=== PATIENT | male | born 1940 | race African-American/Black ===

== ENCOUNTER 2018-06-14 09:02 | Outpatient (CLI) | payer MEDICARE ==
[2018-06-14 11:38] LABS: Free T4 (Free Thyroxine) 1.28 ng/dL (0.76-1.46)
== END 2018-06-14 09:03 | disposition home or self-care (01) ==
LOC: LAB 09:02
PROVIDERS: ATTEND Internal Medicine
DX: E78.5 Hyperlipidemia, unspecified (principal); C67.9 Malignant neoplasm of bladder, unspecified; R73.09 Other abnormal glucose; R19.7 Diarrhea, unspecified; R79.89 Other specified abnormal findings of blood chemistry; E78.00 Pure hypercholesterolemia, unspecified; I10 Essential (primary) hypertension; Z93.50 Unspecified cystostomy status
CPT/HCPCS: 36415; 82607; 83036; 84439; 84443

== ENCOUNTER 2018-11-16 09:44 | Outpatient (CLI) | payer MEDICARE ==
[2018-11-16 10:29] LABS: Alanine Aminotransferase 15 units/L (7-56); Albumin 4.6 g/dL (3.9-5); Chol/HDL Ratio 4.76 %; HDL Cholesterol 38 mg/dL (40-59); LDL Cholesterol,Direct 117 mg/dL (50-130)
[2018-11-16 10:34] LABS: Bilirubin,Direct < 0.2 mg/dL (0-0.2)
== END 2018-11-16 09:45 | disposition home or self-care (01) ==
LOC: LAB 09:44
PROVIDERS: ATTEND Internal Medicine
DX: E78.5 Hyperlipidemia, unspecified (principal); E78.00 Pure hypercholesterolemia, unspecified; I10 Essential (primary) hypertension; K21.9 Gastro-esophageal reflux disease without esophagitis
CPT/HCPCS: 36415; 80061; 80076; 82607

== ENCOUNTER 2019-04-28 12:03 | Outpatient (CLI) | payer MEDICARE ==
--- NOTE | 2019-04-28 14:23 | Cat Scan Report ---
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 TECHNIQUE: Axial CT images were obtained through the abdomen and pelvis without IV contrast. Sagittal and coronal reformatted images. All CT scans at this location are performed using CT dose reduction for ALARA by means of automated exposure control. FINDINGS: CT ABDOMEN: Lung Bases: Clear. Liver: No significant abnormality. Biliary: No significant abnormality. Spleen: No significant abnormality. Unenlarged. Pancreas: No significant abnormality. Adrenals: No significant abnormality. Kidneys: The right kidney and proximal collecting system are unremarkable. Tiny subcentimeter cortica l cyst is noted near the inferior pole. No normal left renal parenchyma is appreciated. There appears to be severe diffuse cortical thinning throughout the left kidney. There are multiple cysts with wal l calcifications in the left kidney with the largest measuring 5.4 cm at the superior pole. A [address] one is identified in the left renal pelvis but no hydronephrosis. Lymphatics: No lymphadenopathy. Vasculature: Moderate aortic calcifications are identified. No aneurysm. Bowel/Peritoneum: No evidence for bowel obstruction or focal inflammation. A moderate to large duoden al diverticulum is identified measuring up to 4.6 x 2.3 cm in axial plane. Ileal conduit is noted in the right lower quadrant. There is a moderate sized parastomal hernia containing fat. The hernia wendy ures up to [address] PELVIS: : Cystectomy changes are evident. No pelvic cyst, mass or adenopathy. Osseous Structures: Mild osteopenia. Mild lumbar spondylosis. No fracture or suspicious bony lesion i s identified. Additional Findings: None IMPRESSION: Cystectomy changes with ileal conduit formation. A moderate to large parastomal hernia containing fat is noted in the right lower quadrant. Severe atrophy of the left kidney with multiple cysts as described. No acute process or evidence for metastatic disease. Signer Name: Yon Pierce Jr, MD Signed: 04/28/2019 2:19 PM Workstation Name: [id number]
== END 2019-04-28 12:04 | disposition home or self-care (01) ==
LOC: CT 12:03
PROVIDERS: ATTEND Urology
DX: N28.1 Cyst of kidney, acquired (principal); C67.4 Malignant neoplasm of posterior wall of bladder; N20.0 Calculus of kidney; K43.5 Parastomal hernia without obstruction or gangrene; N26.1 Atrophy of kidney (terminal)
CPT/HCPCS: 74176

== ENCOUNTER 2020-05-07 11:15 | Outpatient (CLI) | payer MEDICARE ==
--- NOTE | 2020-05-07 12:16 | XRay Report ---
CHEST 2 VIEWS INDICATION: HISTORY OF BLADDER CANCER. COMPARISON: None. FINDINGS: Support devices: None. Heart: Within normal limits. Lungs/Pleura: No acute air space or interstitial disease. No significant pleural effusion. IMPRESSION: No acute findings. Signer Name: Yovani Tello MD Signed: 05/07/2020 12:12 PM Workstation Name: [id number]
== END 2020-05-07 11:16 | disposition home or self-care (01) ==
LOC: XRAY 11:15
PROVIDERS: ATTEND Internal Medicine Hematology & Oncology
DX: R05 Cough (principal); Z85.51 Personal history of malignant neoplasm of bladder
CPT/HCPCS: 71046

== ENCOUNTER 2021-06-06 11:09 | Outpatient (CLI) | payer MEDICARE | END 2021-06-06 11:10 | disposition home or self-care (01) | LOC: LABHHL 11:09 | PROVIDERS: ATTEND Internal Medicine Hematology & Oncology | DX: C67.9 Malignant neoplasm of bladder, unspecified (principal) ==

== ENCOUNTER 2021-07-01 07:13 | Day surgery (SDC) | payer MEDICARE ==
[2021-07-01] MEDS ORDERED: SODIUM CHLORIDE 0.9% 500 ML 500 ML IV SCH (08:00)
[2021-07-01 08:07] LABS: Basophils # (Auto) 0.1 K/mm3 (0.0-0.1); Basophils % (Auto) 0.7 % (0.0-1.8); Eosinophils # (Auto) 0.2 K/mm3 (0.0-0.4); Eosinophils % (Auto) 1.9 % (0.0-4.3); Hematocrit 33.8 % (35.5-45.6); Hemoglobin 10.9 gm/dl (11.8-15.2); Lymphocytes # (Auto) 1.9 K/mm3 (1.2-5.4); Lymphocytes % (Auto) 17.2 % (13.4-35.0); Mean Corpuscular HGB Conc 32 % (32-34); Mean Corpuscular Volume 95 fl (84-94); Monocytes # (Auto) 1.2 K/mm3 (0.0-0.8); Monocytes % (Auto) 11.1 % (0.0-7.3); Platelet Count 391 K/mm3 (140-440); Red Blood Count 3.55 M/mm3 (3.65-5.03); Red Cell Distribution Width 17.5 % (13.2-15.2)
[2021-07-01 08:18] LABS: INR 1.01 (0.87-1.13)
[2021-07-01 08:19] LABS: Calcium 9.4 mg/dL (8.4-10.2); Partial Thromboplastin Time 35.2 Sec. (24.2-36.6)
--- NOTE | 2021-07-01 09:12 | Cat Scan Report ---
CT ABDOMEN AND PELVIS WITHOUT CONTRAST HISTORY: kidney stone. Acute generalized flank pain COMPARISON: CT abdomen/pelvis from 04/28/2019 TECHNIQUE: CT images of the abdomen and pelvis were obtained without administration of intravenous co ntrast. All CT scans at this location are performed using CT dose reduction for ALARA by means of au tomated exposure control. FINDINGS: Lungs/bones: Chronic bibasilar interstitial disease again noted with otherwise clear lungs. There ar e degenerative changes in the spine with nothing acute. Abdomen/pelvis: Cystectomy change noted with right lower quadrant ileal conduit. Chronic multicystic appearance of the left kidney again noted with no appreciable renal parenchymal identified. There is moderate to severe right-sided hydronephrosis which tracks to the level of the anastomosis with the ileal conduit. There is mild inflammatory stranding along the mid right ureter with no underlying sto ne disease. Ileal conduit itself is unremarkable. There is a stable moderate-sized fat-containing right inguinal hernia which now also contains a knuck le of colon with no bowel obstruction. Rim calcified soft tissue structure previously in the abdomen is now herniated through this defect as well. The liver, spleen, pancreas, adrenals, and proximal GI tract appear unremarkable. There is punctate c holelithiasis with no inflammatory change identified. No pelvic free fluid. No acute colonic abnormal ity identified. IMPRESSION: 1. Moderate to severe right-sided hydronephrosis tracking to the ileal conduit anastomotic site. Ther e may be an underlying stricture. No stone disease identified. 2. Additional incidental and postoperative findings as above. Signer Name: Thang Clement MD Signed: 07/01/2021 9:07 AM Workstation Name: [id number]
[2021-07-01] MEDS ORDERED: ceFAZolin/Water 2 GM/20 ML 2 GM/20 ML SYRINGE IV ONE (10:33)
[2021-07-01] MEDS ORDERED: HEPARIN/NS 5000 UNIT/500ML 1,000 ML IR ONE (10:33)
[2021-07-01] MEDS ORDERED: LIDOCAINE 2%/EPINEPHRINE 1:200,000 VIAL (20 ML) INFILTRATI ONE (10:33)
[2021-07-01] MEDS: fentaNYL 100 MCG/2 ML INJ ONE ×3 (11:19→11:45)
[2021-07-01] MEDS: MIDAZOLAM 2 MG/2 ML INJ ONE ×4 (11:22→11:54)
--- NOTE | 2021-07-01 14:27 | Short Stay Summary ---
Short Stay Documentation Date of service: 07/01/21 Narrative H&P: 80-year-old male with bladder carcinoma status post cystectomy with ileal loop creation with left atretic kidney and right hydronephrotic kidney with chronic renal insufficiency. Patient has a stricture of the ureter requiring nephrostomy tube placement with ureteral stent placement. Risk, benefits, alternatives discussed. Patient and family agree with procedure. - History Principal diagnosis: Hydronephrosis H&P: obtained from office - Allergies and Medications Current Medications: Allergies ciprofloxacin [From Cipro] Allergy (Verified 10/19/13 16:31) Rash SWELLING/REDNESS ciprofloxacin HCl [From Cipro] Allergy (Verified 10/19/13 16:31) Rash Home Medications Medication Instructions Recorded Confirmed Last Taken Type amLODIPine 5 mg PO DAILY 10/13/13 07/01/21 06/30/21 History atenoloL [Tenormin] 25 mg PO DAILY 10/13/13 07/01/21 06/30/21 History AtorvaSTATin [Lipitor] 20 mg PO QHS 07/01/21 07/01/21 06/30/21 History Fenofibrate [Tricor] 145 mg PO QDAY 07/01/21 07/01/21 06/30/21 History Folic AC/Vit Bcomp,C/Zn/Vit D3 1 tab PO DAILY 07/01/21 07/01/21 06/30/21 History [Dialyvite 800-Ultra D Tablet] Active Medications Sodium Chloride (Nacl 0.9% 500 Ml) 500 mls @ 50 mls/hr IV DIRECT ALESIA Stop: 07/01/21 20:00 Last Admin: 07/01/21 09:17 Dose: 50 mls/hr - Physical exam General appearance: no acute distress Lungs: Normal air movement Gastrointestinal: normal, other (Pressure on right flank) Extremities: normal temperature, normal color - Brief post op/procedure progress note Date of procedure: 07/01/21 Pre-op diagnosis: Hydronephrosis with ileal conduit Post-op diagnosis: same Procedure: 1. Ultrasound-guided access of the right interpolar posterior calyx. 2. Right nephrostogram with ureterogram and ileal conduit selection with contrast injection. 3. Fluoroscopic guided placement of a right 6 [place]istan[place] 28 cm JJ ureteral stent 4. Fluoroscopic guided placement of a right-sided 8 [place]istanian nephrostomy tube Anesthesia: local (With conscious sedation) Surgeon: LUIS HAMMONDS Estimated blood loss: minimal Condition: stable - Hospital course Hospital course: Patient tolerated the procedure well. Mild hematuria which is expected. Set up for nephrostogram in 2 weeks and possible nephrostomy tube removal. - Disposition Condition at discharge: Stable Disposition: 01 HOME / SELF CARE / HOMELESS - Discharge Diagnoses (1) Hydronephrosis due to obstruction of ureter Status: Acute (2) S/P urological surgery Status: Acute (3) Bladder cancer Status: Chronic Short Stay Discharge Plan Activity: advance as tolerated Weight Bearing Status: Weight Bear as Tolerated Diet: regular Wound: keep clean and dry, other (Sponge baths for the next 2 weeks. Can clean catheter with alcohol wipes.) Follow up with: CHIP LONGO MD [Primary Care Provider] - 7 Days
--- NOTE | 2021-07-01 14:28 | Operative Report ---
Operative Report Operative Report: EXAM: 1. Ultrasound and fluoroscopic guided access of the interpolar posterior calyx of the right kidney 2. Nephrostogram and ureterogram of the right kidney 3. Selection of the ileal conduit with sinogram 5. Fluoroscopic guided 6 [place] 28 cm JJ ureteral stent placement in the right ureter 4. Fluoroscopic guided 8 [place] percutaneous nephrostomy tube placement of the right kidney DATE: 07/01/2021 TECHNICAL TRAINING SPECIALIST: LUIS HAMMONDS MD INDICATION: Right-sided hydronephrosis with ileal conduit with chronic renal insufficiency and completely atrophic left kidney MEDICATIONS: Please see nursing report for full details. DEVICES: 8 [place]e nephrostomy tube 6 Sen[place]alese 28 cm JJ ureteral stent CONTRAST: Please see Loss Claim Clerk report for full details PROCEDURE: The risks, benefits, and alternatives were discussed with the patient; written informed consent was obtained. The patient's back was prepped and draped in a sterile fashion. The patient's puncture site was anesthetized with lidocaine. Under direct ultrasound guidance, the right interpolar posterior calyx was accessed with a 21-gauge needle. Urine was aspirated. 0.018 inch wire was passed into the collecting system. Needle was exchanged for the inner dilator of the 6 [place] AccuStick system and contrast was injected demonstrating right-sided hydronephrosis and hydroureter with proximal partial occlusion. The AccuStick system was then reassembled. 6 [place] Accustick system was advanced over the wire and passed into the collecting system. Wire, inner dilator and cannula were removed. Contrast was injected confirming position within the collecting system. Nephrostogram was performed demonstrating moderate hydronephrosis with partial obstruction of the proximal ureter due to a large kink and near obstruction of the distal ureter due to a long stricture with irregularity which may be malignant. 4 [place] catheter was advanced through the AccuStick system and with a Glidewire the distal ureter was selected and contrast was injected. Then the ileal conduit was selected and contrast was injected. The ileal conduit appeared pa tent. 0.035 inch Amplatz wire was advanced through the vertebral catheter into the ileal conduit. AccuStick system was removed and serial dilatation was performed and a 7 [place]e 23 cm sheath was advanced over the wire. A CyActive wire was then advanced through the sheath into the ileal conduit and then the sheath was removed and readvanced over the Amplatz wire. 6 [place] 28 cm JJ stent was then deployed in the ileal conduit and into the renal pelvis. This was slightly manipulated with the use of a 6 mm to 10 mm ensnare snare and pulled into the interpolar calyx. I then remove the sheath and wire. Over the denis wire, 8 [place]e nephrostomy tube was advanced over the wire. Wire was removed. Maceo loop was performed in the renal pelvis. Contrast was injected into the nephrostomy tube confirming position within the collecting system. There was patency of the ureteral stent. Contrast was aspirated. Large amount of flush was then delivered to flush the renal collecting system. The nephrostomy tube was sutured in place with 2, 2-0 Ethilon. Sterile dressing applied. Patient tolerated the procedure well. She was transferred to the floor in stable condition. FINDINGS: Please see procedure note above. IMPRESSION: 1. Successful nephrostogram of the right kidney demonstrating hydronephrosis, proximal ureteral kinking, and a extensive distal ureteral stricture with irregularity concerning for malignancy. 2. Right percutaneous nephrostomy tube placement in the interpolar posterior calyx of the right kidney. 3. Right ureteral stent placement (28 cm, 6 Sen[place]alese, JJ)
[2021-07-01 16:51] VITALS: BP 110/39
== END 2021-07-01 07:14 | disposition home or self-care (01) ==
LOC: CATHLABREC 07:13
PROVIDERS: ATTEND Radiology Diagnostic Radiology
DX: N13.1 Hydronephrosis with ureteral stricture, not elsewhere classified (principal); N13.2 Hydronephrosis with renal and ureteral calculous obstruction; C67.4 Malignant neoplasm of posterior wall of bladder; N13.0 Hydronephrosis with ureteropelvic junction obstruction; I10 Essential (primary) hypertension; C67.9 Malignant neoplasm of bladder, unspecified; D64.9 Anemia, unspecified; E78.00 Pure hypercholesterolemia, unspecified; K21.9 Gastro-esophageal reflux disease without esophagitis; M10.9 Gout, unspecified; Z88.8 Allergy status to other drugs, medicaments and biological substances; Z79.899 Other long term (current) drug therapy; Z98.49 Cataract extraction status, unspecified eye; Z98.890 Other specified postprocedural states
CPT/HCPCS: 36415; 50432; 74176; 80048; 85025; 85610; 85730; 99156; 99157; C1729; C1769; C1773; C1894; C2617; J0690; J1644; J2250; J3010; J3490; J7040; 50693; Q9967

== ENCOUNTER 2021-07-16 07:09 | Day surgery (SDC) | payer MEDICARE ==
[2021-07-16] MEDS: SODIUM CHLORIDE 0.9% 500 ML 500 ML IV SCH ×2 (08:13→10:33)
[2021-07-16 08:15] LABS: Hematocrit 34.2 % (35.5-45.6); Hemoglobin 11.4 gm/dl (11.8-15.2); Mean Corpuscular HGB Conc 33 % (32-34); Mean Corpuscular Volume 95 fl (84-94); Platelet Count 377 K/mm3 (140-440); Red Blood Count 3.61 M/mm3 (3.65-5.03); Red Cell Distribution Width 16.8 % (13.2-15.2)
[2021-07-16 08:25] LABS: INR 0.97 (0.87-1.13)
[2021-07-16 08:26] LABS: Partial Thromboplastin Time 34.8 Sec. (24.2-36.6)
[2021-07-16 08:43] LABS: Calcium 9.1 mg/dL (8.4-10.2)
[2021-07-16] MEDS ORDERED: HEPARIN/NS 5000 UNIT/500ML 1,000 ML IR ONE (10:06)
[2021-07-16] MEDS ORDERED: LIDOCAINE 2%/EPINEPHRINE 1:200,000 VIAL (20 ML) INFILTRATI ONE (10:06)
[2021-07-16] MEDS ORDERED: MIDAZOLAM 2 MG/2 ML INJ ONE (10:08)
[2021-07-16] MEDS ORDERED: fentaNYL 100 MCG/2 ML INJ ONE (10:09)
[2021-07-16] MEDS ORDERED: ceFAZolin/Water 2 GM/20 ML 2 GM/20 ML SYRINGE IV ONE (10:17)
[2021-07-16] MEDS ORDERED: AMOXICILLIN/K CLAV 500/125MG TAB PO SCH (11:00)
--- NOTE | 2021-07-16 11:48 | Short Stay Summary ---
Short Stay Documentation Date of service: 07/16/21 Narrative H&P: 80-year-old male with bladder carcinoma status post cystectomy with ileal loop creation with left atretic kidney and right hydronephrotic kidney with chronic renal insufficiency. Recent placement of right ureteral stent placement and nephrostomy tube. Now for evaluation of nephrostomy tube with plan for nephrostomy tube removal. - History Principal diagnosis: Hydronephrosis H&P: obtained from office - Allergies and Medications Current Medications: Allergies ciprofloxacin [From Cipro] Allergy (Verified 10/19/13 16:31) Rash SWELLING/REDNESS ciprofloxacin HCl [From Cipro] Allergy (Verified 10/19/13 16:31) Rash Home Medications Medication Instructions Recorded Confirmed Last Taken Type amLODIPine 5 mg PO DAILY 10/13/13 07/16/21 07/15/21 History atenoloL [Tenormin] 25 mg PO DAILY 10/13/13 07/16/21 07/15/21 History AtorvaSTATin [Lipitor] 20 mg PO QHS 07/01/21 07/16/21 07/15/21 History Fenofibrate [Tricor] 145 mg PO QDAY 07/01/21 07/16/21 07/15/21 History Folic AC/Vit Bcomp,C/Zn/Vit D3 1 tab PO DAILY 07/01/21 07/16/21 07/15/21 History [Dialyvite 800-Ultra D Tablet] Amoxicillin/Potassium Clav 1 each PO BID #28 tab 07/16/21 Unknown Rx [Augmentin 500-125 Tablet] Active Medications Amoxicillin/Clavulanate Potassium (Amoxicillin/K Clav 500/125mg Tab) 1 each PO Q12HR ALESIA; Protocol Last Admin: 07/16/21 11:32 Dose: 1 each Sodium Chloride (Nacl 0.9% 500 Ml) 500 mls @ 50 mls/hr IV DIRECT ALESIA Last Admin: 07/16/21 10:33 Dose: 50 mls/hr - Physical exam General appearance: no acute distress Lungs: Normal air movement Heart: Regular rate Gastrointestinal: normal, other (no right CVT) Extremities: normal temperature, normal color - Brief post op/procedure progress note Date of procedure: 07/16/21 Pre-op diagnosis: hydronephrosis Post-op diagnosis: same Procedure: 1. Right nephrostogram 2. Fluoroscopic guided removal of the right percutaneous nephrostomy tube with indwelling ureteral stent Anesthesia: local (With conscious sedation) Surgeon: LUIS HAMMONDS Estimated blood loss: minimal Specimen disposition: to lab (Urine) Condition: stable - Hospital course Hospital course: The patient has been doing well since his prior nephrostomy tube placement with decrease fullness in his right flank. Some of the urine was full of debris and sent for culture. Patient started on Augmentin for 2 weeks. We will follow-up with Dr. Petersen. Ureteral stent is patent. Can be discharged. - Disposition Condition at discharge: Stable Disposition: 01 HOME / SELF CARE / HOMELESS - Discharge Diagnoses (1) Hydronephrosis due to obstruction of ureter Status: Acute (2) S/P urological surgery Status: Acute Short Stay Discharge Plan Activity: advance as tolerated Weight Bearing Status: Weight Bear as Tolerated Diet: regular Wound: keep clean and dry (Keep right flank puncture clean and dry for the next 3 to 5 days. Once it heals, patient can resume showering. ) Special Instructions: other (Continue antibiotics for 2 weeks. Follow-up with Dr. Petersen in 2 weeks.) Follow up with: CHIP LONGO MD [Primary Care Provider] - 7 Days Prescriptions: Amoxicillin/Potassium Clav [Augmentin 500-125 Tablet] 1 each PO BID #28 tab
--- NOTE | 2021-07-16 11:59 | Operative Report ---
Operative Report Operative Report: EXAM: 1. Nephrostogram through the indwelling right nephrostomy tube. 2. Fluoroscopic guided removal of the right nephrostomy tube DATE: 07/16/2021 PURCHASE ORDER CHECKER: LUIS HAMMONDS MD INDICATION: Right ureteral stent with indwelling nephrostomy tube with need for nephrostogram with nephrostomy tube removal MEDICATIONS: Please see nursing report for full details. DEVICES: Indwelling 8 Citizen Of [place] nephrostomy tube CONTRAST: Please see Test Engine Mechanic report for full details PROCEDURE: The risks, benefits, and alternatives were discussed with the patient; written informed consent was obtained. The patient was brought to the angiography suite in satisfactory condition. The patient was placed in a prone position. The right nephrostomy tube were prepped and draped in a sterile fashion. The right nephrostomy tube was evaluated and determined to be intact. The tract demonstrated no evidence of superficial tract infection. 1% lidocaine was injected around the nephrostomy tube for local anesthetic. Contrast was injected through the existing nephrostomy tube confirming position. The nephrostomy tube was cut. 0.035 inch Chang wire was passed into the renal collecting system. The nephrostomy tube was removed over a wire. Sterile dressing applied. The patient tolerated the procedure well. No immediate postprocedural complications. FINDINGS: 1. The right sided nephrostogram demonstrated mild hydronephrosis with patency of the right ureteral stent with transmission of contrast into the ileal conduit . 2. Successful fluoroscopic guided removal of a right 8 Citizen Of [place] nephrostomy tube. IMPRESSION: Successful nephrostogram and nephrostomy tube removal of a right 8 Citizen [place] nephrostomy tube.
[2021-07-16 12:28] VITALS: BP 142/42
== END 2021-07-16 07:10 | disposition home or self-care (01) ==
LOC: CATHLABREC 07:09
PROVIDERS: ATTEND Radiology Diagnostic Radiology
DX: Z43.6 Encounter for attention to other artificial openings of urinary tract (principal); N13.30 Unspecified hydronephrosis; Z88.1 Allergy status to other antibiotic agents; Z79.899 Other long term (current) drug therapy; Z98.890 Other specified postprocedural states
CPT/HCPCS: 36415; 50389; 80048; 85027; 85610; 85730; 87076; 87086; 87186; 99156; C1769; J0690; J1644; J2250; J3010; J3490; J7040; Q9967

== ENCOUNTER 2021-08-22 10:03 | Outpatient (CLI) | payer MEDICARE ==
--- NOTE | 2021-08-22 11:45 | Cat Scan Report ---
CT ABDOMEN AND PELVIS WITHOUT CONTRAST INDICATION / CLINICAL INFORMATION: C67.4 malignant neoplasm of posterior wall of bladder. Post surger y follow-up on right ureter TECHNIQUE: Axial CT images were obtained through the abdomen and pelvis without IV contrast. Sagittal and joseph l reformatted images. All CT scans at this location are performed using CT dose reduction for ALARA b y means of automated exposure control. COMPARISON: CT abdomen pelvis without contrast 07/01/2021 FINDINGS: LOWER CHEST: No significant abnormality. LIVER: No significant abnormality. GALLBLADDER: Solitary 5 mm gallstone in the gallbladder is noted. No evidence for acute cholecystitis . BILE DUCTS: No significant abnormality. PANCREAS: No significant abnormality. SPLEEN: No significant abnormality. ADRENALS: No significant abnormality. RIGHT KIDNEY and URETER: There is moderate right hydronephrosis although slightly decreased since 06/16. For instance, the right renal pelvis has decreased from 2 cm in width to 1.6 cm in width. A r ight ureteral stent has been inserted which spans from the proximal right ureter near the level of L3 to the skin surface of the ostomy site in the right lower quadrant. Stent migration or stent malfunc tion could be considered. Please correlate with the images. There is no evidence for focal right zak l lesion or nephrolithiasis. LEFT KIDNEY and URETER: The left kidney is severely atrophic with diffuse cortical thinning and multi ple complex cysts containing wall calcifications. The overall appearance is unchanged. No left hydron ephrosis. STOMACH and SMALL BOWEL: The stomach is unremarkable. Small bowel loops are normal caliber. Ileal con duit in the right lower quadrant is noted noted and unchanged. 2 cm duodenal diverticulum projecting from the descending duodenum is unchanged. COLON: No significant abnormality. APPENDIX: Not identified. PERITONEUM: No free fluid. No free air. No fluid collection. LYMPH NODES: No significant adenopathy. AORTA and ARTERIES: Moderate atherosclerotic calcification without acute abnormality. IVC and VEINS: No significant abnormality. URINARY BLADDER: Stable cystectomy changes. REPRODUCTIVE ORGANS: No significant abnormality. ADDITIONAL FINDINGS: A moderate parastomal hernia in the right lower quadrant contains a short segmen t of transverse colon as well as fat. No obstruction or inflammatory changes. SKELETAL SYSTEM: Stable mild thoracolumbar spondylosis. No suspicious bony lesion is detected. IMPRESSION: No evidence for recurrent or metastatic disease on noncontrast CT. There is moderate right hydronephrosis although it is slightly decreased since 07/01/2021 as described above. A right ureteral stent has been placed since the previous exam which spans from the proximal right ureter to the skin surface of the ostomy in the right lower quadrant. See above. The left kidney remains atrophic with multiple complex cysts. Cholelithiasis. Parastomal hernia containing a short segment of transverse colon and fat. Surgical changes as described. Signer Name: Yon Pierce Jr, MD Signed: 08/22/2021 11:40 AM Workstation Name: [id number]
== END 2021-08-22 10:04 | disposition home or self-care (01) ==
LOC: CT 10:03
PROVIDERS: ATTEND Urology
DX: C67.4 Malignant neoplasm of posterior wall of bladder (principal); K80.20 Calculus of gallbladder without cholecystitis without obstruction; N28.1 Cyst of kidney, acquired; N13.30 Unspecified hydronephrosis; K43.5 Parastomal hernia without obstruction or gangrene; I70.0 Atherosclerosis of aorta; M47.815 Spondylosis without myelopathy or radiculopathy, thoracolumbar region
CPT/HCPCS: 74176

== ENCOUNTER 2021-10-14 09:26 | Day surgery (SDC) | payer MEDICARE ==
[2021-10-11 10:17] LABS: Mean Corpuscular HGB Conc 33 % (32-34); Mean Corpuscular Volume 95 fl (84-94); Platelet Count 347 K/mm3 (140-440); Red Blood Count 3.46 M/mm3 (3.65-5.03); Red Cell Distribution Width 13.9 % (13.2-15.2)
[2021-10-11 10:37] LABS: Albumin 3.4 g/dL (3.9-5); Calcium 8.8 mg/dL (8.4-10.2)
[~2021-10-14 09:26] MED LIST: LACTATED RINGERS 1,000 ML IV SCH; SODIUM CHLORIDE 0.9% 1000 ML 1,000 ML IV SCH
[2021-10-14] MEDS ORDERED: BACTERIOSTATIC SODIUM CHLORIDE 0.9% 30 ML VIAL INFILTRATI ONE (09:52)
--- NOTE | 2021-10-14 10:07 | Anesthesia Consultation ---
Anesthesia Consult and Med Hx Date of service: 10/14/21 - Airway Anesthetic Teeth Evaluation: Edentulous ROM Head & Neck: Adequate Mental/Hyoid Distance: Adequate Mallampati Class: Class III Intubation Access Assessment: Possibly Difficult - Pre-Operative Health Status ASA Pre-Surgery Classification: ASA3 Proposed Anesthetic Plan: General - Pulmonary Hx Smoking: No Hx Respiratory Symptoms: No - Cardiovascular System Hx Hypertension: Yes (took amlodipine this morning) Hx Heart Attack/AMI: No Hx Percutaneous Transluminal Coronary Angioplasty (PTCA): No - Central Nervous System CVA: No - Endocrine Hx Renal Disease: Yes (CKD) Hx Insulin Dependent Diabetes: No Hx Non-Insulin Dependent Diabetes: No Hx Thyroid Disease: No - Other Systems Hx Cancer: Yes (hx bladder ca s/p radical cystectomy) - Additional Comments Anesthesia Medical History Comments: No hx anesthetic complications.
[2021-10-14] MEDS ORDERED: HYDROcodone/ACETAMINOPHEN 5-325 MG TAB PO PRN (10:08)
[2021-10-14] MEDS ORDERED: fentaNYL 100 MCG/2 ML INJ IV PRN (10:08)
--- NOTE | 2021-10-14 10:08 | Anesthesia Day of Surgery ---
Anesthesia Day of Surgery - Day of Surgery Patient Examined: Yes Patient H&P Reviewed: Yes Patient is NPO: Yes
[2021-10-14] MEDS ORDERED: ceFAZolin/Water 2 GM/20 ML 2 GM/20 ML SYRINGE IV ONE (11:37)
[2021-10-14] MEDS ORDERED: LIDOCAINE MPF (2%) 20 MG/1 ML VIAL 5 ML ONE (11:43)
[2021-10-14] MEDS ORDERED: fentaNYL 100 MCG/2 ML INJ ONE (11:43)
[2021-10-14] MEDS ORDERED: propofoL 200 MG/20 ML VIAL IV ONE (11:43)
[2021-10-14] MEDS ORDERED: ePHEDrine SULFATE 50 MG/1 ML INJ ONE (11:56)
[2021-10-14] MEDS ORDERED: ceFAZolin/STERILE WATER 2 GM/20 ML SYRINGE IV NR (12:00)
[2021-10-14] MEDS ORDERED: ONDANSETRON 4 MG/2 ML INJ ONE (12:01)
[2021-10-14] MEDS ORDERED: dexAMETHasone 20 MG/5 ML VIAL ONE (12:01)
[2021-10-14] MEDS ORDERED: METHYLENE BLUE 50 MG/10 ML AMP ONE (12:27)
--- NOTE | 2021-10-14 12:34 | Discharge Summary ---
Short Stay Discharge Plan Activity: other Weight Bearing Status: Full Weight Bearing Diet: low cholesterol, low salt Special Instructions: other (ileal loop care ) Follow up with: CHIP LONGO MD [Primary Care Provider] - 7 Days GIRISH SIMMONS MD [Staff Physician] - 14 Days
--- NOTE | 2021-10-14 12:36 | Post Operative Note ---
Date of procedure: 10/14/21 Pre-op diagnosis: r ureteral tumor Post-op diagnosis: same Procedure: looposcopy Anesthesia: SHANNAN Surgeon: GIRISH SIMMONS Estimated blood loss: none Pathology: none Condition: stable Disposition: PACU
--- NOTE | 2021-10-14 13:14 | Operative Report ---
DATE OF SURGERY: 10/14/2021 PREOPERATIVE DIAGNOSIS: Right mid ureteral tumor. 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 PROCEDURE: Attempted ureteroscopy. SURGEON: John Petersen MD ANESTHESIA: General. FINDINGS: This is a gentleman with a tumor and a stent coming from the kidney to the stoma. He now presents for possible ureteroscopy. DESCRIPTION OF PROCEDURE: The patient was brought to the operating room and placed on the operating table. Following induction of anesthesia, placed in the supine position, prepped and draped in usual sterile fashion. Stent was easily visualized and a wire coiled up in the kidney. It took a double loop from the stoma down to the loop up to the ureter. We got it up to the kidney and a series we tried to put the open-ended over the wire. Because of the loop, it just flipped right out into the stoma, came out the ureter. We scoped the loop. There was no tumor in the loop. It was very difficult to see any orifice and we did not want to damage or traumatize this. The tumor had shrunk significantly and at this point, we will leave it out and let us see how he does with his kidney function over the next 2-3 weeks. He may need a percutaneous placed back in. Family is aware. At this point, we will keep it out for now. TID: [id number] RECEIPT: [id number] NATALIA
--- NOTE | 2021-10-14 14:15 | Event Note ---
Date: 10/14/[address] Petersen. Stent was not able to be exchanged. Went to bedside, but family not present and patient still was asleep. Dr. Petersen will reassess with CT and creatinine. If patient has elevated levels, then we will place PCNU tube for care home drainage.
[2021-10-14 15:24] VITALS: BP 123/53
--- NOTE | 2021-10-14 15:32 | Fluoroscopy Report ---
. 6 fluoroscopic images submitted Indication: Intraoperative localization Impression: 6 images of the abdomen were submitted for documentation purposes with radiology involve ment. Ileal conduit was evaluated utilizing approximately 50 mL of Omnipaque 300. Please refer to t simeon operative note for complete details. Fluoroscopic time: 1 minute and 4 seconds Signer Name: Thang Clement MD Signed: 10/14/2021 3:28 PM Workstation Name: [email or web address]
--- NOTE | 2021-10-14 16:33 | Post Anesthesia Evaluation ---
- Post Anesthesia Evaluation Patient Participated: Yes Airway Patent: Yes Stable Respiratory Function: Yes Nausea/Vomiting: No Temp > 96.8F: Yes Pain Manageable: Yes Adequeate Hydration: Yes Anesthesia Complications: No
== END 2021-10-14 13:45 | disposition home or self-care (01) ==
LOC: OR 09:26
PROVIDERS: ATTEND Urology
DX: C66.9 Malignant neoplasm of unspecified ureter (principal); C78.6 Secondary malignant neoplasm of retroperitoneum and peritoneum; N13.1 Hydronephrosis with ureteral stricture, not elsewhere classified; D64.9 Anemia, unspecified; E78.00 Pure hypercholesterolemia, unspecified; K21.9 Gastro-esophageal reflux disease without esophagitis; I12.9 Hypertensive chronic kidney disease with stage 1 through stage 4 chronic kidney disease, or unspecified chronic kidney disease; N18.9 Chronic kidney disease, unspecified; M10.9 Gout, unspecified; Z88.8 Allergy status to other drugs, medicaments and biological substances; Z79.899 Other long term (current) drug therapy; Z85.51 Personal history of malignant neoplasm of bladder; Z98.49 Cataract extraction status, unspecified eye; Z20.822 Contact with and (suspected) exposure to COVID-19
CPT/HCPCS: 36415; 50951; 80053; 85027; C1758; C1769; J0690; J1100; J2405; J2704; J3010; J3490; J7030; Q9967; Q9968; U0003; 74420

== ENCOUNTER 2021-10-24 08:04 | Day surgery (SDC) | payer MEDICARE ==
[2021-10-24] MEDS ORDERED: SODIUM CHLORIDE 0.9% 1000 ML 1,000 ML ONE ×2 (08:39→09:18)
[2021-10-24 08:47] LABS: Basophils # (Auto) 0.1 K/mm3 (0.0-0.1); Basophils % (Auto) 0.4 % (0.0-1.8); Eosinophils # (Auto) 0.2 K/mm3 (0.0-0.4); Eosinophils % (Auto) 1.4 % (0.0-4.3); Hematocrit 36.8 % (35.5-45.6); Hemoglobin 11.8 gm/dl (11.8-15.2); Lymphocytes # (Auto) 1.2 K/mm3 (1.2-5.4); Lymphocytes % (Auto) 10.2 % (13.4-35.0); Mean Corpuscular HGB Conc 32 % (32-34); Mean Corpuscular Volume 97 fl (84-94); Monocytes % (Auto) 8.9 % (0.0-7.3); Platelet Count 374 K/mm3 (140-440); Red Blood Count 3.79 M/mm3 (3.65-5.03); Red Cell Distribution Width 14.1 % (13.2-15.2)
--- NOTE | 2021-10-24 08:52 | Short Stay Summary ---
Short Stay Documentation Date of service: 10/24/21 - History Principal diagnosis: Right hydronephrosis Past Medical History: other (Patient with a history of right hydronephrosis and ileal conduit.) Past Surgical History: Other (Ilial conduit, prior nephrostomy tube and ureteral stent placement) Social history: no significant social history - Allergies and Medications Current Medications: Allergies ciprofloxacin [From Cipro] Allergy (Verified 10/13/21 10:58) Rash SWELLING/REDNESS Home Medications Medication Instructions Recorded Confirmed Last Taken Type amLODIPine 5 mg PO DAILY 10/13/13 10/09/21 10/14/21 08:00 History atenoloL [Tenormin] 25 mg PO DAILY 10/13/13 10/09/21 10/14/21 08:00 History AtorvaSTATin [Lipitor] 20 mg PO QHS 07/01/21 10/09/21 10/13/21 History Fenofibrate [Tricor] 145 mg PO QDAY 07/01/21 10/09/21 10/13/21 History Folic AC/Vit Bcomp,C/Zn/Vit D3 1 tab PO DAILY 07/01/21 10/09/21 10/13/21 History [Dialyvite 800-Ultra D Tablet] Active Medications Sodium Chloride (Nacl 0.9% 500 Ml) 500 mls @ 50 mls/hr IV DIRECT ALESIA Stop: 10/24/21 20:00 Levofloxacin/Dextrose (Levaquin 500mg/100ml) 500 mg in 100 mls @ 100 mls/hr IV PREOP NR; Protocol Stop: 10/24/21 09:59 - Physical exam General appearance: no acute distress HEENT: Atraumatic Lungs: Normal air movement Gastrointestinal: normal Male Genitourinary: deferred Rectal Exam: deferred - Brief post op/procedure progress note Date of procedure: 10/24/21 Pre-op diagnosis: Right hydronephrosis Post-op diagnosis: same Procedure: Right neph tube placement Anesthesia: local Surgeon: LUIS MENCHACA Estimated blood loss: none Specimen disposition: to lab Condition: stable - Disposition Condition at discharge: Good Disposition: 01 HOME / SELF CARE / HOMELESS Short Stay Discharge Plan Activity: advance as tolerated Weight Bearing Status: Weight Bear as Tolerated Diet: regular Wound: keep clean and dry, per your surgeon's advice Follow up with: ALICE CARRILLO MD [Primary Care Provider] - 7 Days Prescriptions: oxyCODONE /ACETAMINOPHEN [Percocet 5/325] 1 tab PO Q6HR PRN #20 tablet PRN Reason: Pain
[2021-10-24] MEDS ORDERED: SODIUM CHLORIDE 0.9% 500 ML 500 ML IV SCH (09:00)
[2021-10-24] MEDS ORDERED: HEPARIN/NS 5000 UNIT/500ML 500 ML IR ONE (09:10)
[2021-10-24 09:20] LABS: INR 0.94 (0.87-1.13)
[2021-10-24 09:21] LABS: Partial Thromboplastin Time 37.5 Sec. (24.2-36.6)
[2021-10-24 09:49] LABS: Calcium 9.2 mg/dL (8.4-10.2)
[2021-10-24] MEDS: LIDOCAINE (2%) 20 MG/1 ML VIAL 20 ML MDV INFILTRATI ONE ×2 (10:00→10:09)
[2021-10-24] MEDS: fentaNYL 100 MCG/2 ML INJ ONE ×2 (10:00→10:08)
[2021-10-24] MEDS: MIDAZOLAM 2 MG/2 ML INJ ONE ×2 (10:00→10:08)
--- NOTE | 2021-10-24 10:29 | Operative Report ---
Operative Report Operative Report: Exam: Ultrasound and fluoroscopic guided placement of right nephrostomy tube Clinical indication: Patient with a history of right kidney with diverting ileal conduit, atrophic left kidney and subsequent development of right hydronephrosis Date: 10/24/2021 Procedure: Following an explanation of the risk, benefits and alternatives; written informed consent was obtained. The patient was brought to the angiographic suite and placed in oblique position on the examination table. Initial ultrasound evaluation of the kidney demonstrated mild right hydronephrosis. The patient's right back and flank were prepped and draped in the usual sterile fashion. 2% lidocaine was used for anesthesia. Under ultrasound guidance, a posterior inferior small calyx was cannulated using a 15 cm 21-gauge needle. A 0.018 guidewire was then advanced through the needle under fluoroscopy into the proximal ureter. The needle was removed. An AccuStick transition dilator was then placed over the guidewire and the transition dilator trocar and guidewire removed. The kidney was allowed to decompress. There is prompt return of urine with some cloudiness. Contrast was gently injected which demonstrates appropriate positioning. 0.035 guidewire was again reinserted into the proximal ureter and the transition dilator removed following serial dilation over the guidewire under fluoroscopy, an 8 Croatian pigtail catheter was advanced over the guidewire and placed to position the pigtail within the renal pelvis. Contrast was gently injected to document appropriate positioning. Samples of the urine were then obtained for laboratory analysis. The catheter was securely fastened to the skin surface using 2-0 Ethilon suture and a StatLock device. The catheter was then placed to dependent drainage. Sterile dressings were applied. The patient tolerated the procedure well. There were no immediate postprocedure complications. Conscious sedation was performed under the guidance of radiologic nursing. Continuous cardiopulmonary monitoring was utilized. Impression: Ultrasound and fluoroscopic guided for placement of 8 Croatian nephrostomy tube and a posterior inferior calyx with prompt return of cloudy urine. A sample was sent for laboratory analysis
[2021-10-24 13:48] VITALS: BP 131/51
== END 2021-10-24 08:05 | disposition home or self-care (01) ==
LOC: CATHLABREC 08:04
PROVIDERS: ATTEND Radiology Diagnostic Radiology
DX: N13.1 Hydronephrosis with ureteral stricture, not elsewhere classified (principal); N26.1 Atrophy of kidney (terminal); I10 Essential (primary) hypertension; D64.9 Anemia, unspecified; E78.00 Pure hypercholesterolemia, unspecified; K21.9 Gastro-esophageal reflux disease without esophagitis; M10.9 Gout, unspecified; Z98.890 Other specified postprocedural states; Z88.8 Allergy status to other drugs, medicaments and biological substances; Z79.899 Other long term (current) drug therapy; Z85.51 Personal history of malignant neoplasm of bladder; Z98.49 Cataract extraction status, unspecified eye; Z87.442 Personal history of urinary calculi
CPT/HCPCS: 36415; 50432; 80048; 85025; 85610; 85730; 87076; 87116; 87186; 99156; 99157; C1729; C1769; J1644; J2250; J3010; J3490; J7030; J7502; Q9967

== ENCOUNTER 2021-11-11 06:53 | Day surgery (SDC) | payer MEDICARE ==
[2021-11-11 07:51] LABS: Basophils # (Auto) 0.1 K/mm3 (0.0-0.1); Basophils % (Auto) 0.9 % (0.0-1.8); Eosinophils # (Auto) 0.5 K/mm3 (0.0-0.4); Eosinophils % (Auto) 4.8 % (0.0-4.3); Hematocrit 34.4 % (35.5-45.6); Hemoglobin 11.5 gm/dl (11.8-15.2); Lymphocytes # (Auto) 1.9 K/mm3 (1.2-5.4); Lymphocytes % (Auto) 19.1 % (13.4-35.0); Mean Corpuscular HGB Conc 33 % (32-34); Mean Corpuscular Volume 96 fl (84-94); Monocytes % (Auto) 10.2 % (0.0-7.3); Platelet Count 352 K/mm3 (140-440)
[2021-11-11 08:00] LABS: INR 0.92 (0.87-1.13)
[2021-11-11] MEDS ORDERED: SODIUM CHLORIDE 0.9% 500 ML 500 ML IV SCH (08:00)
[2021-11-11 08:01] LABS: Calcium 9.2 mg/dL (8.4-10.2); Partial Thromboplastin Time 33.7 Sec. (24.2-36.6)
[2021-11-11] MEDS ORDERED: SODIUM CHLORIDE 0.9% IV ONE (10:00)
[2021-11-11] MEDS ORDERED: DOXYCYCLINE HYCLATE IV ONE (10:00)
[2021-11-11] MEDS ORDERED: HEPARIN/NS 5000 UNIT/500ML 1,000 ML IR ONE (10:27)
[2021-11-11] MEDS ORDERED: MIDAZOLAM 2 MG/2 ML INJ ONE (10:42)
[2021-11-11] MEDS ORDERED: fentaNYL 100 MCG/2 ML INJ ONE (10:42)
[2021-11-11] MEDS ORDERED: LIDOCAINE 2%/EPINEPHRINE 1:200,000 VIAL (20 ML) INFILTRATI ONE (10:46)
[2021-11-11] MEDS: LIDOCAINE (2%) 20 MG/1 ML VIAL 20 ML MDV INFILTRATI ONE ×2 (10:49→10:54)
--- NOTE | 2021-11-11 11:20 | Short Stay Summary ---
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 Unfortunately, urology was unable to exchange the ureteral stents. Therefore, patient had recently had percutaneous nephrostomy tube placed with plan now for percutaneous nephroureteral tube conversion. Risk, benefits, and alternatives discussed. Family and patient agree. 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, multiple urologic procedures) Past Surgical History: bowel surgery, Other (Numerous urologic procedures including cystectomy with ileal conduit creation) Social history: no significant social history - Allergies and Medications Current Medications: Allergies ciprofloxacin [From Cipro] Allergy (Verified 10/13/21 10:58) Rash SWELLING/REDNESS gemfibrozil Allergy (Verified 11/11/21 07:26) Itching Home Medications Medication Instructions Recorded Confirmed Last Taken Type amLODIPine 5 mg PO DAILY 10/13/13 10/24/21 11/10/21 History atenoloL [Tenormin] 25 mg PO DAILY 10/13/13 10/24/21 11/10/21 History AtorvaSTATin [Lipitor] 20 mg PO QHS 07/01/21 10/24/21 11/10/21 History Fenofibrate [Tricor] 145 mg PO QDAY 07/01/21 10/24/21 11/10/21 History Folic AC/Vit Bcomp,C/Zn/Vit D3 800 tab PO DAILY 10/24/21 10/24/21 11/10/21 History [Dialyvite 800-Ultra D Tablet] oxyCODONE /ACETAMINOPHEN [Percocet 1 tab PO Q6HR PRN #20 tablet 10/24/2110/18 Rx 5/325] Loratadine [Claritin] 10 mg PO DAILY 11/11/21 11/11/21 11/10/21 History Active Medications Sodium Chloride (Nacl 0.9% 500 Ml) 500 mls @ 50 mls/hr IV DIRECT ALESIA Stop: 11/11/21 20:00 - Physical exam General appearance: no acute distress Lungs: Normal air movement Heart: Regular rate Gastrointestinal: normal Extremities: normal temperature, normal color - Brief post op/procedure progress note Date of procedure: 11/11/21 Pre-op diagnosis: Hydronephrosis Post-op diagnosis: same Procedure: Percutaneous right-sided nephrostomy tube conversion to nephroureteral tube Anesthesia: local (With conscious sedation) Surgeon: LUIS HAMMONDS Estimated blood loss: minimal Condition: stable - Hospital course Hospital course: The patient tolerated the procedure well. No immediate postprocedural complications. Will be discharged with pain medication and saline flushes. - Disposition Condition at discharge: Stable Disposition: 01 HOME / SELF CARE / HOMELESS - Discharge Diagnoses (1) Hydronephrosis due to obstruction of ureter Status: Acute (2) S/P urological surgery Status: Acute (3) Bladder cancer Status: Chronic (4) HTN (hypertension) Status: Chronic Short Stay Discharge Plan Activity: advance as tolerated Weight Bearing Status: Weight Bear as Tolerated Diet: regular Wound: keep clean and dry (Flush the nephroureteral tube twice a day with sterile 10 mL saline syringes. Use alcohol to clean claves between uses. Can keep secured to patient with 4 x 4's and tape. Can apply Betadine daily for 7 days to exit site if it becomes irritated.) Follow up with: ALICE CARRILLO MD [Primary Care Provider] - 7 Days
--- NOTE | 2021-11-11 11:37 | Operative Report ---
Operative Report Operative Report: EXAM: 1. Nephrostogram through the indwelling right nephrostomy tube. 2. Conversion of right-sided 8 Serbian nephrostomy tube to 10 Serbian nephroureteral tube DATE: 11/11/2021 PIPE INSULATOR: LUIS HAMMONDS MD INDICATION: Cystectomy status post ileal conduit with right-sided hydronephrosis and left-sided atretic kidney. Previous nephrostomy tube with conversion to ureteral stent placement. Urology could not exchange stent. New nephrostomy tube placed, with plan for conversion to nephroureteral tube. MEDICATIONS: Please see nursing report for full details. DEVICES: 28 cm, 10 Serbian nephroureteral catheter CONTRAST: Please see Wool Presser note for full details. PROCEDURE: The risks, benefits, and alternatives were discussed with the patient; written informed consent was obtained. The patient was brought to the angiography suite in satisfactory condition. The patient was placed in a prone position. The tubes were prepped and draped in a sterile fashion. The right nephrostomy tube was evaluated and determined to be intact. The tract demonstrated no evidence of superficial tract infection. There is some irritation of the skin at the exit of the tube. 1% lidocaine was injected around the nephrostomy tube for local anesthetic. Contrast was injected through the existing nephrostomy tube confirming position. The nephrostomy tube was cut. 0.035 inch Chang wire, Glidewire, and angled catheter were used to negotiate through the ureter and into the ileal conduit. Contrast was injected confirming position. There was a high-grade stenosis at the distal ureter as it enters the ileal conduit. A 10 Serbian nephroureteral catheter was advanced over the wire and into the collecting system and the distal pigtail was deployed in the ileal conduit with the second pigtail deployed in the renal pelvis. [place] loop was formed in the renal pelvis. Contrast was injected confirming position with contrast passing through the collecting system and into the ileal conduit. Saline was injected through the collecting system. The catheter was secured with a 2-0 Ethilon. Sterile dressing was applied. The catheter was connected to a reflux valve. The patient tolerated the procedure without issue. The patient was transferred to the OPPU area without issue. FINDINGS: 1. The right sided nephrostogram demonstrated severe right distal ureteral stricture with moderate hydronephrosis. 2. Successful fluoroscopic guided conversion to a 10 Serbian nephroureteral catheter. IMPRESSION: Successful conversion of a nephrostomy tube to a 10 Serbian nephroureteral catheter.
[2021-11-11 11:48] VITALS: BP 133/52
== END 2021-11-11 12:15 | disposition home or self-care (01) ==
LOC: CATHLABREC 06:53
PROVIDERS: ATTEND Radiology Diagnostic Radiology
DX: N13.1 Hydronephrosis with ureteral stricture, not elsewhere classified (principal); I12.9 Hypertensive chronic kidney disease with stage 1 through stage 4 chronic kidney disease, or unspecified chronic kidney disease; N18.9 Chronic kidney disease, unspecified; D64.9 Anemia, unspecified; E78.00 Pure hypercholesterolemia, unspecified; K21.9 Gastro-esophageal reflux disease without esophagitis; M10.9 Gout, unspecified; Z98.890 Other specified postprocedural states; Z79.899 Other long term (current) drug therapy; Z88.8 Allergy status to other drugs, medicaments and biological substances; Z85.51 Personal history of malignant neoplasm of bladder; Z98.49 Cataract extraction status, unspecified eye; Z86.73 Personal history of transient ischemic attack (TIA), and cerebral infarction without residual deficits
CPT/HCPCS: 36415; 50434; 80048; 85025; 85610; 85730; 99156; 99157; C1751; C1769; J1644; J2250; J3010; J3490; J7040; J7050; Q9967